=== PATIENT | male | born 1985 | race Caucasian/White ===

== ENCOUNTER 2020-01-26 08:49 | Emergency (ER) | payer MEDICAID ==
[~2020-01-26] VITALS: Ht 172.7 cm; Wt 72.6 kg
[2020-01-26 11:20] VITALS: BP 111/81
[2020-01-26] MEDS ORDERED: TETRACAINE HCL 0.5% OPTH(EYE) SOLN 4ML RIGHTEYE ONE (11:45)
[2020-01-26] MEDS ORDERED: FLUORESCEIN SOD 1 MG TEST STRIP RIGHTEYE ONE (11:45)
== END 2020-01-26 14:18 | disposition home or self-care (01) ==
LOC: EDBD 08:49 → ER 08:49
DX: H57.11 Ocular pain, right eye (principal); H53.8 Other visual disturbances

== ENCOUNTER 2020-02-11 14:11 | Emergency (ER) | payer MEDICAID ==
[~2020-02-11] VITALS: Ht 172.7 cm; Wt 74.8 kg
[2020-02-11 14:25] VITALS: BP 122/69
[2020-02-11] MEDS ORDERED: KETOROLAC TROMETH 60MG/2ML VIAL IM ONE (16:15)
== END 2020-02-11 16:40 | disposition home or self-care (01) ==
LOC: ER 14:11
DX: M25.462 Effusion, left knee (principal); M11.262 Other chondrocalcinosis, left knee; K04.7 Periapical abscess without sinus
CPT/HCPCS: 73562; 96372; 99283; J1885